=== PATIENT | male | born 1980 | race Caucasian/White ===

== ENCOUNTER 2020-03-21 13:14 | Emergency (ER) | payer SELFPAY ==
--- NOTE | 2020-03-26 12:30 | EKG ---
Test Reason : Blood Pressure : / mmHG Vent. Rate : 125 BPM Atrial Rate : 125 BPM P-R Int : 140 ms QRS Dur : 082 ms QT Int : 312 ms P-R-T Axes : 053 034 018 degrees QTc Int : 450 ms Sinus tachycardia Possible Left atrial enlargement Borderline ECG Confirmed by BOUBACAR CAICEDO DO ([id number]), editorial manager GRETEL JONES ([id number]) on 03/26/2020 12:29:35 PM Referred By: Confirmed By:BOUBACAR CAICEDO DO
== END 2020-03-21 14:30 | disposition home or self-care (01) ==
LOC: ERS 13:14
DX: F15.10 Other stimulant abuse, uncomplicated (principal); R00.0 Tachycardia, unspecified
CPT/HCPCS: 93005

== ENCOUNTER 2020-03-28 13:39 | Emergency (ER) | payer SELFPAY ==
[2020-03-28 14:28] LABS: #Basophils 0.1 thou/uL (0.0-0.2); #Eosinphils 0.1 thou/uL (0.0-0.7); #Lymphocytes 2.2 thou/uL (1.20-3.40); #Monocytes 1.2 thou/uL (0.11-0.59); #Neutrophils 7.8 thou/uL (1.40-6.50); %Eosinophils 1.2 % (0.0-10.0); %Lymphocytes 19.2 % (21.0-51.0); %Monocytes 10.2 % (0.0-10.0); %Neutrophils 68.5 % (42.0-75.0); Hemoglobin 17.4 g/dL (14.0-18.0); Mean Corpuscular HGB CONC 32.8 g/dL (32.0-36.0); Mean Corpuscular Hemoglobin 30.3 pg (27.0-31.0); Mean Corpuscular Volume 92.2 fL (78.0-98.0); Mean Platelet Volume 6.2 fL (7.4-10.4); Platelet Count 438 thou/uL (130-400); RBC Distribution Width 11.8 % (11.5-14.5); Red Blood Cell (RBC) Count 5.73 mill/uL (4.70-6.10); White Blood Cell (WBC) Count 11.4 thou/uL (4.8-10.8)
[2020-03-28 14:56] LABS: ALT (SGPT) 21 U/L (8-55); AST (SGOT) 15 U/L (5-34); Albumin 4.7 g/dL (3.5-5.0); Alcohol Less than 10 mg/dL (Less than 10); Alkaline Phosphatase 91 U/L (40-110); Anion Gap 13 mmol/L (10-20); BUN (Urea Nitrogen) 15 mg/dL (8.9-20.6); Bilirubin, Total 0.3 mg/dL (0.2-1.2); Calc. Creatinine Clearance 0 mL/min (70-130); Calcium 9.7 mg/dL (7.8-10.44); Carbon Dioxide 25 mmol/L (22-29); Chloride 105 mmol/L (98-107); Estimated GFR-MDRD 78; Globulin 3.3 g/dL (2.4-3.5); Glucose 97 mg/dL (70-105); Potassium 4.1 mmol/L (3.5-5.1); Sodium 139 mmol/L (136-145)
[2020-03-28 15:05] LABS: Acetaminophen Less than 6.0 mcg/mL (10.0-30.0); Alcohol Less than 10 mg/dL (Less than 10); CK (CPK) 184 U/L (30-200); Salicylate Less than 8.0 mg/dL (15.0-30.0)
[2020-03-28 15:27] LABS: Bilirubin Negative (Negative); Blood, Urine 1+ (Negative); Clarity Clear (Clear); Glucose, Urine (Dipstick) Normal (Negative); Leukocyte Negative Leu/uL (Negative); Nitrite Negative (Negative); Protein, Urine (Dipstick) 50 mg/dL (Neg-Trace); Squamous Epithelial 0-3 HPF (0-3); Urobilinogen Normal mg/dL (Less than 2)
[2020-03-28 15:37] LABS: Amphetamine Detected (NotDetected); Barbiturates Screen Not Detected (NotDetected); Benzodiazepine Screen Not Detected (NotDetected); Cocaine Metabolite Screen Not Detected (NotDetected); Medtox Control Line Valid? VALID (VALID); Medtox Reader # READER 4; Methadone Not Detected (NotDetected); Methamphetamine Detected (NotDetected); Opiate Screen Not Detected (NotDetected); Oxycodone Screen Not Detected (NotDetected); Phencyclidine (PCP) Not Detected (NotDetected); THC/Cannabinoid Screen Not Detected (NotDetected); Tricyclic Screen Not Detected (NotDetected)
[2020-03-28 15:45] LABS: Bacteria/HPF 1+ HPF (None Seen)
[2020-03-28] MEDS ORDERED: Lorazepam 1 MG TAB ONE (17:22)
[2020-03-28] MEDS ORDERED: diphenhydrAMINE 25 MG CAP ONE (18:24)
[2020-03-28] MEDS ORDERED: Haloperidol Lactate 5 MG/ML VIAL ONE (18:24)
--- NOTE | 2020-04-03 11:22 | EKG ---
Test Reason : Blood Pressure : / mmHG Vent. Rate : 111 BPM Atrial Rate : 111 BPM P-R Int : 142 ms QRS Dur : 080 ms QT Int : 322 ms P-R-T Axes : 046 028 026 degrees QTc Int : 437 ms Sinus tachycardia Cannot rule out Anterior infarct , age undetermined Abnormal ECG Confirmed by BOUBACAR CAICEDO DO ([id number]), video editor GRETEL JONES ([id number]) on 04/03/2020 11:21:42 AM Referred By: Confirmed By:BOUBACAR CAICEDO DO
== END 2020-03-28 21:38 ==
LOC: ERS 13:39
DX: F29 Unspecified psychosis not due to a substance or known physiological condition (principal); F15.10 Other stimulant abuse, uncomplicated; R45.851 Suicidal ideations
CPT/HCPCS: 36415; 80053; 80306; 80307; 81003; 81015; 82550; 84443; 85025; 93005; 94760; 96372; J1630; Q0163

== ENCOUNTER 2020-08-13 12:51 | Emergency (ER) | payer SELFPAY | END 2020-08-13 13:07 | disposition home or self-care (01) | LOC: ERS 12:51 | DX: L73.9 Follicular disorder, unspecified (principal) | CPT/HCPCS: 99282 ==

== ENCOUNTER 2020-08-14 05:49 | Inpatient (IN) | payer SELFPAY ==
[2020-08-14] MEDS ORDERED: Lorazepam 2 MG/ML VIAL ONE ×2 (05:54→07:21)
[2020-08-14] MEDS ORDERED: Acetaminophen 650 MG Suppository ONE (06:07)
[2020-08-14] MEDS ORDERED: Propofol 1,000 MG/100 ML VIAL IV ONE (06:27)
[2020-08-14 06:30] LABS: #Basophils 0.1 thou/uL (0.0-0.2); #Eosinphils 0.1 thou/uL (0.0-0.7); #Lymphocytes 2.5 thou/uL (1.20-3.40); #Monocytes 1.6 thou/uL (0.11-0.59); #Neutrophils 15.4 thou/uL (1.40-6.50); %Basophils 0.6 % (0.0-1.0); %Eosinophils 0.6 % (0.0-10.0); %Lymphocytes 12.7 % (21.0-51.0); %Monocytes 8.2 % (0.0-10.0); %Neutrophils 77.9 % (42.0-75.0); Hemoglobin 16.1 g/dL (14.0-18.0); Mean Corpuscular HGB CONC 33.1 g/dL (32.0-36.0); Mean Corpuscular Hemoglobin 30.9 pg (27.0-31.0); Mean Corpuscular Volume 93.3 fL (78.0-98.0); Mean Platelet Volume 7.8 fL (7.4-10.4); Platelet Count 485 thou/uL (130-400); RBC Distribution Width 12.1 % (11.5-14.5); Red Blood Cell (RBC) Count 5.22 mill/uL (4.70-6.10); White Blood Cell (WBC) Count 19.7 thou/uL (4.8-10.8)
[2020-08-14] MEDS ORDERED: Midazolam HCl 5 mg/ml Vial ONE (06:41)
[2020-08-14] MEDS ORDERED: Fentanyl 100 MCG/2 ML VIAL ONE (06:46)
[2020-08-14 06:49] LABS: Acetaminophen Less than 6.0 mcg/mL (10.0-30.0); Alcohol Less than 10 mg/dL (Less than 10); CK (CPK) 491 U/L (30-200); Salicylate Less than 8.0 mg/dL (15.0-30.0)
[2020-08-14 06:50] LABS: ALT (SGPT) 33 U/L (8-55); AST (SGOT) 27 U/L (5-34); Albumin 4.4 g/dL (3.5-5.0); Alkaline Phosphatase 90 U/L (40-110); Anion Gap 35 mmol/L (10-20); BUN (Urea Nitrogen) 27 mg/dL (8.9-20.6); Bilirubin, Total 0.3 mg/dL (0.2-1.2); Calc. Creatinine Clearance 0 mL/min (70-130); Calcium 9.3 mg/dL (7.8-10.44); Carbon Dioxide 10 mmol/L (22-29); Chloride 102 mmol/L (98-107); Estimated GFR-MDRD 27; Globulin 3.5 g/dL (2.4-3.5); Glucose 254 mg/dL (70-105); Potassium 3.7 mmol/L (3.5-5.1); Protein, Total 7.9 g/dL (6.0-8.3); Sodium 143 mmol/L (136-145)
[2020-08-14 06:54] LABS: Actual Bicarbonate (HCO3a) 15.9 mEq/L (22-28); Analyzer IN Cardio ER; Base Excess (BEa) -10.2 mEq/L (-2.0 to +3.0); CO2 Tension 36.1 mmHg (35.0-45.0); Calcium, Ionized (arterial) 1.19 mmol/L (1.12-1.30); Carboxyhemoglobin (COHb) 0.2 gm% (0.0-3.0); Hemoglobin (Hb) 14.8 g/dL (14.0-18.0); O2 Tension (PaO2), arterial 218.6 mmHg (80.0-100.0); Potassium - ABG Lab 3.45 mmol/L (3.70-5.30); pH, Arterial 7.26 (7.35-7.45)
[2020-08-14] MEDS ORDERED: fentaNYL Citrate/PF 2,000 MCG in Sodium Chloride 0.9% 60 ML IV SCH ×2 (07:00→11:15)
[2020-08-14 07:24] LABS: Bacteria/HPF None Seen HPF (None Seen); Bilirubin Negative (Negative); Blood, Urine 1+ (Negative); Clarity Clear (Clear); Glucose, Urine (Dipstick) 30 mg/dL (Negative); Ketone, Urine 10 mg/dL (Negative); Leukocyte Negative Leu/uL (Negative); Nitrite Negative (Negative); Protein, Urine (Dipstick) 100 mg/dL (Neg-Trace); Specific Gravity, Urine 1.027 (1.002-1.036); Squamous Epithelial None Seen HPF (0-3); Urobilinogen Normal mg/dL (Less than 2); pH, Urine 5.5 (5.0-9.0)
[2020-08-14 07:32] LABS: Amphetamine Detected (NotDetected); Barbiturates Screen Not Detected (NotDetected); Benzodiazepine Screen Not Detected (NotDetected); Cocaine Metabolite Screen Not Detected (NotDetected); Medtox Control Line Valid? VALID (VALID); Medtox Reader # READER 4; Methadone Not Detected (NotDetected); Methamphetamine Detected (NotDetected); Opiate Screen Not Detected (NotDetected); Oxycodone Screen Not Detected (NotDetected); Phencyclidine (PCP) Not Detected (NotDetected); THC/Cannabinoid Screen Not Detected (NotDetected); Tricyclic Screen Not Detected (NotDetected)
[2020-08-14] MEDS ORDERED: Piperacillin/Tazobactam 4.5 GM VIAL ONE (07:41)
[2020-08-14 07:46] LABS: Puncture Site RR
[2020-08-14 07:49] LABS: ALV-art Gradient 92.775 mmHg (0-20)
--- NOTE | 2020-08-14 08:15 | RAD ---
RADIOGRAPH CHEST 1 VIEW: DATE: 08/14/2020 TIME: 6:38 AM HISTORY: 40-year-old male status post intubation. COMPARISON: none FINDINGS: Endotracheal tuber distal tip approximately 5 cm superior to marcel. Esophagogastric tube coursing in to left upper quadrant of abdomen, distal tip outside of field of view. Low lung volumes. Nonspecific mild to moderate reticular densities at left medial base. Upper lung zones are clear of c onsolidations. No pneumothorax. IMPRESSION: 1) status post intubation with endotracheal tube and esophagogastric tube. 2) Limited evaluation of lungs because of hypoinflation. 3) reticular densities at left lower lung zone, nonspecific.
[2020-08-14] MEDS ORDERED: Ondansetron PF 4 MG/2 ML Vial IVP PRN (08:47)
[2020-08-14 08:59] LABS: Hemoglobin A1c 5.5 % (4.0-6.0)
[2020-08-14 09:00] LABS: SARS-CoV-2 NAA Rapid Test Not Detected (NotDetected)
[2020-08-14 09:18] VITALS: BMI 29.9
[2020-08-14] MEDS: Sodium Chloride 0.9% 1,000 ML IV SCH ×2 (09:29→15:03)
[2020-08-14] MEDS: Heparin 5,000 UNITS/ML VIAL SC SCH ×3 (09:57→20:16)
[2020-08-14] MEDS ORDERED: FLU VACC QS2020-21(6MOS UP)/PF 60 MCG/0.5 ML SYRINGE IM ONE (10:00)
[2020-08-14] MEDS ORDERED: DISCONTINUE PREVIOUS NARCOTIC PAIN MEDICATIONS AND BENZODIAZEPINES FS SCH (11:15)
[2020-08-14] MEDS ORDERED: Lorazepam 2 MG/ML VIAL SLOW IVP PRN (11:15)
[2020-08-14] MEDS ORDERED: Propofol BOLUS 1,000 MG/100 ML VIAL IV PRN (11:15)
[2020-08-14] MEDS ORDERED: Fentanyl BOLUS 250 ML IVPB PRN (11:15)
[2020-08-14] MEDS ORDERED: Morphine 2 MG/ML VIAL SLOW IVP PRN (11:15)
--- NOTE | 2020-08-14 11:18 | PDOC.HHP ---
Hospitalist HPI - History of Present Illness Altered mental status History of Present Illness: This is a 40-year-old male patient with an unknown psych history, who was brought in by the tool grinder set up operator gear on account of abnormal behavior. He is apparently unknown acid/meth user and was combative at the time he was picked up. He was brought in by police after he was found throwing bricks at an office. In route to the ED he was given sedatives including ketamine I have well. At presentation his blood pressure was 132/76, pulse 125, saturation 95% on room air and temperature 100.4. His labs showed a leukocytosis of 11.7, no bands, creatinine was elevated at 2.67 from a baseline of 1.06 on 03/28/2020. Anion gap was elevated at 31. Urine toxicology was positive for methamphetamine and amphetamine. Chest x-ray had nonspecific reticular densities at the left lower lung zone. Upon arrival he was persistently agitated with worsening altered mental status. Decision was made to sedate and intubate him. Post intubation, pH was 7.26, bicarb 36.1. Given his leukocytosis and mild baseline fevers he received some antibioticsZosyn on arrival. Hospitalist team was consulted for admission. Hospitalist ROS - Review of Systems ROS unobtainable: due to mental status - Medication Medications: Active Medications Generic Name Dose Route Start Last Admin Trade Name Lisa PRN Reason Stop Dose Admin Heparin Sodium (Porcine) 5,000 units 08/14/20 09:00 08/14/20 09:57 Heparin 5,000 Units/Ml Vial SC 5,000 units TID RIZWAN Administration Sodium Chloride 1,000 mls @ 100 mls/hr 08/14/20 09:00 08/14/20 09:29 Normal Saline 0.9% IV 1,000 mls .Q10H RIZWAN Administration Sodium Chloride 10 ml 08/14/20 09:00 08/14/20 09:30 Flush - Normal Saline 10 Ml Syringe IVF 10 ml Q12HR RIZWAN Administration - Exam General - other findings: In bed, on ventilator support Neck: symmetric, no JVD Heart: no murmur, no gallops Respiratory: no wheezes, no rales, no ronchi Gastrointestinal: soft, non-distended, normal bowel sounds Extremities: no cyanosis, no clubbing, no edema Hospitalist Results - Labs Result Diagrams: 08/14/20 05:54 08/14/20 05:54 Lab results: WBC 19.7 thou/uL (4.8-10.8) H 08/14/20 05:54 Hgb 16.1 g/dL (14.0-18.0) 08/14/20 05:54 Hct 48.7 % (42.0-52.0) 08/14/20 05:54 MCV 93.3 fL (78.0-98.0) 08/14/20 05:54 Plt Count 485 thou/uL (130-400) H 08/14/20 05:54 Neutrophils % 77.9 % (42.0-75.0) H 08/14/20 05:54 ABG pH 7.26 (7.35-7.45) L 08/14/20 06:50 ABG pCO2 36.1 mmHg (35.0-45.0) 08/14/20 06:50 ABG pO2 218.6 mmHg (80.0-100.0) H 08/14/20 06:50 Sodium 143 mmol/L (136-145) 08/14/20 05:54 Potassium 3.7 mmol/L (3.5-5.1) 08/14/20 05:54 Chloride 102 mmol/L (98-107) 08/14/20 05:54 Carbon Dioxide 10 mmol/L (22-29) L 08/14/20 05:54 BUN 27 mg/dL (8.9-20.6) H 08/14/20 05:54 Creatinine 2.67 mg/dL (0.7-1.3) H 08/14/20 05:54 Glucose 254 mg/dL (70-105) H 08/14/20 05:54 Lactic Acid 1.7 mmol/L (0.5-2.2) 08/14/20 07:50 Calcium 9.3 mg/dL (7.8-10.44) 08/14/20 05:54 Total Bilirubin 0.3 mg/dL (0.2-1.2) 08/14/20 05:54 AST 27 U/L (5-34) 08/14/20 05:54 ALT 33 U/L (8-55) 08/14/20 05:54 Alkaline Phosphatase 90 U/L (40-110) 08/14/20 05:54 Creatine Kinase 491 U/L (30-200) H 08/14/20 05:54 Serum Total Protein 7.9 g/dL (6.0-8.3) 08/14/20 05:54 Albumin 4.4 g/dL (3.5-5.0) 08/14/20 05:54 Urine Ketones 10 mg/dL (Negative) A 08/14/20 05:54 Urine Blood 1+ (Negative) A 08/14/20 05:54 Urine Nitrite Negative (Negative) 08/14/20 05:54 Ur Leukocyte Esterase Negative Katia/uL (Negative) 08/14/20 05:54 Urine RBC 4-6 HPF (0-3) A 08/14/20 05:54 Urine WBC 4-6 HPF (0-3) A 08/14/20 05:54 Ur Squamous Epith Cells None Seen HPF (0-3) 08/14/20 05:54 Urine Bacteria None Seen HPF (None Seen) 08/14/20 05:54 Hospitalist H&P A/P - Plan Plan: This is a 40-year-old male patient with a history of substance abuse brought in on account of altered mental status concerning for amphetamine intoxication. Acute encephalopathy Likely secondary to drug overdose We will continue monitoring on ventilator support Acute respiratory failure intubation for airway protection due to acute encephalopathy Pulmonology consulted. Amphetamine overdose. Vital signs currently stable Continue monitoring on ventilator and wean off Discussed with poison controlno further input Close monitoring. MAJOR Multifactorialintoxication, dehydration and elevated blood pressures Received 2 L normal saline in ER Continue home 100 mils per hour IV fluids Monitor BMP Elevated creatinine kinase
[2020-08-14 11:21] LABS: Actual Bicarbonate (HCO3a) 18.2 mEq/L (22-28); Base Excess (BEa) -6.3 mEq/L (-2.0 to +3.0); CO2 Tension 33.4 mmHg (35.0-45.0); Calcium, Ionized (arterial) 1.13 mmol/L (1.12-1.30); Carboxyhemoglobin (COHb) 0.1 gm% (0.0-3.0); Hemoglobin (Hb) 13.8 g/dL (14.0-18.0); O2 Tension (PaO2), arterial 134.1 mmHg (80.0-100.0); Potassium - ABG Lab 3.43 mmol/L (3.70-5.30); pH, Arterial 7.36 (7.35-7.45)
[2020-08-14 11:24] LABS: Puncture Site RBRACH
[2020-08-14] MEDS: Vecuronium 10 MG VIAL IV PRN ×2 (13:18→17:50)
[2020-08-14] MEDS: Propofol 1,000 MG/100 ML VIAL IV PRN (18:39)
--- NOTE | 2020-08-15 00:46 | CON ---
DATE OF CONSULTATION: 08/14/2020 HISTORY OF PRESENT ILLNESS: Mr. Coleman is a 40-year-old male. Apparently, police were called after he was throwing bricks at a building. Police and cheese cutter gave him ketamine and he was transported at some point in time, intubated. I was consulted because of his presence to Critical Care Unit. PAST MEDICAL HISTORY: Remarkable for an ER visit in March with psychosis both on the for police related medical clearance and on the . He has no other known past medical history. FAMILY HISTORY: Unknown. SOCIAL HISTORY: Unknown. PHYSICAL EXAMINATION: GENERAL: He is sedated. VITAL SIGNS: Blood pressure 103/70, heart rate is 80, respiratory rate 16, FiO2 is at 40%. HEAD AND NECK: Unremarkable. He does have some bruises on his face. His neck is without lymphadenopathy. LUNGS: Clear. HEART: Regular rhythm. ABDOMEN: Soft. EXTREMITIES: Without asymmetry. LABORATORY DATA: White count 19.7, hemoglobin 16.1, platelets 45. Sodium 143, potassium 3.7, chloride 102, bicarb 10, BUN 27, creatinine 2.67, glucose 254, creatine kinase 491, pH 736, CO2 of 33, PO2 of 134. Drug screen is positive for meth. IMPRESSION: 1. Psychosis associated with methamphetamine use. 2. Intravascular volume depletion. 3. Acute renal insufficiency secondary to intravascular volume depletion. 4. Rhabdomyolysis secondary to meth use and probably struggling with police officers. His drug screen was positive for meth back in March as well. It is very hard to separate out what is schizophrenia and meth use, but I suspect the majority of his behavior is entirely related to methamphetamine use. He will be mechanically ventilated for 24 to 48 hours until we are sure the meth is cleared out of his system, and then will be extubated and if necessary we will release to police custody. I suspect if he stays in town, he will be a frequent flyer since this is 3 visits in 5 months to our hospital. Critical care time 35 min. Job ID: [id number] [facility] SERVICESAnnie
[2020-08-15] MEDS: Sodium Chloride 0.9% 1,000 ML IV SCH ×3 (01:10→14:18)
[2020-08-15] MEDS ORDERED: Sterile Water 10 ML ONE (02:50)
[2020-08-15] MEDS: Vecuronium 10 MG VIAL IV PRN (02:58)
[2020-08-15] MEDS: Propofol 1,000 MG/100 ML VIAL IV PRN ×2 (02:58→08:14)
[2020-08-15 03:41] LABS: Anion Gap 14 mmol/L (10-20); BUN (Urea Nitrogen) 28 mg/dL (8.9-20.6); Calc. Creatinine Clearance 64 mL/min (70-130); Calcium 8.1 mg/dL (7.8-10.44); Carbon Dioxide 20 mmol/L (22-29); Chloride 117 mmol/L (98-107); Estimated GFR-MDRD 36; Glucose 65 mg/dL (70-105); Potassium 4.1 mmol/L (3.5-5.1); Sodium 147 mmol/L (136-145)
[2020-08-15 06:04] LABS: Band 11 % (5-11); Eosinophils 3 % (0-10); Hemoglobin 13.7 g/dL (14.0-18.0); Lymphocytes 25 % (21-51); MDiff Complete? YES; Mean Corpuscular HGB CONC 32.1 g/dL (32.0-36.0); Mean Corpuscular Hemoglobin 30.5 pg (27.0-31.0); Mean Platelet Volume 6.7 fL (7.4-10.4); Monocytes 12 % (0-10); Neutrophil 49 % (42-75); Platelet Count 283 thou/uL (130-400); RBC Distribution Width 12.3 % (11.5-14.5); White Blood Cell (WBC) Count 12.5 thou/uL (4.8-10.8)
[2020-08-15] MEDS ORDERED: Haloperidol Lactate 5 MG/ML VIAL ONE (08:08)
[2020-08-15] MEDS: Heparin 5,000 UNITS/ML VIAL SC SCH ×3 (08:14→20:19)
[2020-08-15] MEDS ORDERED: Haloperidol Lactate 5 MG/ML VIAL IM SCH (08:15)
--- NOTE | 2020-08-15 08:30 | PDOC.HOSPP ---
- Subjective Encounter Date: 08/15/20 Encounter Time: 08:29 Subjective: intubated, sedated - Objective Vital Signs & Weight: Vital Signs (12 hours) Temp Pulse Resp BP Pulse Ox 08/15/20 07:23 67 106/65 08/15/20 07:07 100 08/15/20 06:00 16 08/15/20 05:00 98.4 F 08/15/20 04:00 16 08/15/20 02:17 69 08/15/20 02:00 16 08/15/20 01:00 98.0 F 08/15/20 00:00 16 08/14/20 22:07 79 08/14/20 22:00 16 Weight Weight 208 lb 12.444 oz Most Recent Monitor Data Heart Rate from ECG 67 NIBP 106/65 NIBP BP-Mean 78 Respiration from ECG 16 SpO2 100 I&O: 08/14/20 08/15/20 08/16/20 06:59 06:59 06:59 Intake Total 1644.3 Output Total 2345 150 Balance -700.7 -150 Result Diagrams: 08/15/20 04:08 08/15/20 03:08 Radiology Reviewed by me: Yes (CXR- ET tube, clear lung ross) Hospitalist ROS - Medication Medications: Active Medications Generic Name Dose Route Start Last Admin Trade Name Freq PRN Reason Stop Dose Admin Haloperidol Lactate 10 mg 08/15/20 08:15 08/15/20 08:15 Haloperidol Lactate 5 Mg/Ml Vial IM 08/15/20 10:00 10 mg NOW RIZWAN Administration Heparin Sodium (Porcine) 5,000 units 08/14/20 09:00 08/15/20 08:14 Heparin 5,000 Units/Ml Vial SC 5,000 units TID RIZWAN Administration Sodium Chloride 1,000 mls @ 100 mls/hr 08/14/20 09:00 08/15/20 04:29 Normal Saline 0.9% IV Not Given .Q10H RIZWAN Fentanyl Citrate 2,000 mcg/ 100 mls @ 0 mls/hr 08/14/20 11:15 08/14/20 17:50 Sodium Chloride IV 09/13/20 11:15 100 mls INF RIZWAN Administration Protocol Per Protocol Propofol 1,000 mg 08/14/20 11:15 08/15/20 08:14 Propofol 1,000 Mg/100 Ml Vial IV 09/13/20 11:15 1,000 mg INF PRN Administration TO ACHIEVE GOAL RASS Protocol Sodium Chloride 10 ml 08/14/20 09:00 08/15/20 08:14 Flush - Normal Saline 10 Ml Syringe IVF 10 ml Q12HR RIZWAN Administration Vecuronium [place] 10 mg 08/14/20 11:13 08/15/20 02:58 Vecuronium 10 Mg Vial IV 10 mg Q1H PRN Administration MOVEMENT - Exam ENT - other findings: ET tube Neck - other findings: NGT aspirate bloody Heart: RRR, no murmur Respiratory: CTAB Gastrointestinal: soft, non-tender, normal bowel sounds Extremities: no edema Hosp A/P (1) Acute psychosis Code(s): F23 - BRIEF PSYCHOTIC DISORDER Status: Acute (2) Methamphetamine addiction Code(s): F15.20 - OTHER STIMULANT DEPENDENCE, UNCOMPLICATED Status: Acute (3) Rhabdomyolysis Code(s): M62.82 - RHABDOMYOLYSIS Status: Acute Qualifiers: Rhabdomyolysis type: non-traumatic Qualified Code(s): M62.82 - Rhabdomyolysis (4) Acute renal failure Status: Acute Qualifiers: Acute renal failure type: unspecified Qualified Code(s): N17.9 - Acute kidney failure, unspecified (5) Acute respiratory failure with hypoxemia Code(s): J96.01 - ACUTE RESPIRATORY FAILURE WITH HYPOXIA Status: Acute - Plan on ventilator cont iv fluids monitor renal fcn add iv PPI
[2020-08-15] MEDS: Pantoprazole 40 MG VIAL IVP SCH (09:28)
--- NOTE | 2020-08-15 17:24 | PRG ---
DATE OF SERVICE: 08/15/2020 SUBJECTIVE: Levi Coleman is awake and actually surprisingly cooperative this morning. He met criteria for extubation. OBJECTIVE: VITAL SIGNS: He is afebrile. Vital signs are stable. LUNGS: Clear. HEART: Regular rhythm. ABDOMEN: Soft. EXTREMITIES: Without edema. LABORATORY DATA: White count 12.5, hemoglobin 13.7, platelets 283. Sodium 147, potassium 4.1, chloride 117, bicarb 20, BUN 20, creatinine 2.05. He was given 10 mg IV Haldol prior to extubation. IMPRESSION: 1. Methamphetamine-induced behavior leading to sedation and intubation. He has been extubated. 2. Anzaj-rs-yxneoqg kidney disease, it is improving. 3. Diabetes. 4. Hyperchloremia secondary to volume resuscitation. 5. He is stable to move out of Critical Care Unit. The police were called. The police should be contacted as the police holding on for his discharge. Rhabdomyolysis, I am sure, has improved. We will sign off on transfer. CRITICAL CARE TIME: 30 minutes. Job ID: [id number]
[2020-08-16] MEDS: Sodium Chloride 0.9% 1,000 ML IV SCH ×3 (01:29→20:38)
[2020-08-16] MEDS: Pantoprazole 40 MG VIAL IVP SCH (08:14)
[2020-08-16] MEDS: Heparin 5,000 UNITS/ML VIAL SC SCH ×3 (08:14→20:33)
--- NOTE | 2020-08-16 08:37 | PDOC.HOSPP ---
- Subjective Encounter Date: 08/16/20 Encounter Time: 08:35 Subjective: alert, oriented x 3, flat affect - Objective Vital Signs & Weight: Vital Signs (12 hours) Temp Pulse Resp BP BP Pulse Ox 08/16/20 07:20 98.9 F 93 18 131/83 95 08/16/20 04:00 97.8 F 113 H 20 141/93 H 121/81 92 L 08/15/20 23:49 98.6 F 84 20 131/83 91 L Weight Weight 208 lb 12.444 oz Most Recent Monitor Data Heart Rate from ECG 92 NIBP 124/76 NIBP BP-Mean 92 Respiration from ECG 17 SpO2 91 I&O: 08/15/20 08/16/20 08/17/20 06:59 06:59 06:59 Intake Total 1644.3 852 Output Total 2345 1825 Balance -700.7 -973 Result Diagrams: 08/15/20 04:08 08/15/20 03:08 Hospitalist ROS - Medication Medications: Active Medications Generic Name Dose Route Start Last Admin Trade Name Freq PRN Reason Stop Dose Admin Heparin Sodium (Porcine) 5,000 units 08/14/20 09:00 08/16/20 08:14 Heparin 5,000 Units/Ml Vial SC 5,000 units TID RZIWAN Administration Sodium Chloride 1,000 mls @ 100 mls/hr 08/14/20 09:00 08/16/20 01:29 Normal Saline 0.9% IV Not Given .Q10H RIZWAN Propofol 1,000 mg 08/14/20 11:15 08/15/20 08:14 Propofol 1,000 Mg/100 Ml Vial IV 09/13/20 11:15 1,000 mg INF PRN Administration TO ACHIEVE GOAL RASS Protocol Sodium Chloride 10 ml 08/14/20 09:00 08/16/20 08:14 Flush - Normal Saline 10 Ml Syringe IVF 10 ml Q12HR RIZWAN Administration - Exam General Appearance: awake alert Neck: no JVD Heart: RRR, no murmur Respiratory: CTAB Gastrointestinal: soft, normal bowel sounds Extremities: no edema Hosp A/P (1) Acute psychosis Code(s): F23 - BRIEF PSYCHOTIC DISORDER Status: Resolved (2) Methamphetamine addiction Code(s): F15.20 - OTHER STIMULANT DEPENDENCE, UNCOMPLICATED Status: Acute (3) Rhabdomyolysis Code(s): M62.82 - RHABDOMYOLYSIS Status: Acute Qualifiers: Rhabdomyolysis type: non-traumatic Qualified Code(s): M62.82 - Rhabdomyolysis (4) Acute renal failure Status: Acute Qualifiers: Acute renal failure type: unspecified Qualified Code(s): N17.9 - Acute kidney failure, unspecified (5) Acute respiratory failure with hypoxemia Code(s): J96.01 - ACUTE RESPIRATORY FAILURE WITH HYPOXIA Status: Resolved - Plan much improved discussed methamphtemine use cont iv fluids. CK, BMP pending
[2020-08-16 11:18] LABS: Anion Gap 12 mmol/L (10-20); BUN (Urea Nitrogen) 17 mg/dL (8.9-20.6); CK (CPK) 1831 U/L (30-200); Calc. Creatinine Clearance 98 mL/min (70-130); Calcium 8.7 mg/dL (7.8-10.44); Carbon Dioxide 26 mmol/L (22-29); Chloride 111 mmol/L (98-107); Estimated GFR-MDRD 59; Glucose 106 mg/dL (70-105); Potassium 4.3 mmol/L (3.5-5.1); Sodium 145 mmol/L (136-145)
--- NOTE | 2020-08-16 14:54 | PDOC.HOSPP ---
- Subjective Encounter Date: 08/16/20 Encounter Time: 14:53 Subjective: CK about 1800, creat improved. cont current TX - Objective Vital Signs & Weight: Vital Signs (12 hours) Temp Pulse Resp BP BP Pulse Ox 08/16/20 08:15 95 08/16/20 07:20 98.9 F 93 18 131/83 95 08/16/20 04:00 97.8 F 113 H 20 141/93 H 121/81 92 L Weight Weight 208 lb 12.444 oz Most Recent Monitor Data Heart Rate from ECG 92 NIBP 124/76 NIBP BP-Mean 92 Respiration from ECG 17 SpO2 91 I&O: 08/15/20 08/16/20 08/17/20 06:59 06:59 06:59 Intake Total 1644.3 852 Output Total 2345 1825 Balance -700.7 -973 Result Diagrams: 08/15/20 04:08 08/16/20 10:29 Hospitalist ROS - Medication Medications: Active Medications Generic Name Dose Route Start Last Admin Trade Name Freq PRN Reason Stop Dose Admin Heparin Sodium (Porcine) 5,000 units 08/14/20 09:00 08/16/20 08:14 Heparin 5,000 Units/Ml Vial SC 5,000 units TID RIZWAN Administration Sodium Chloride 1,000 mls @ 100 mls/hr 08/14/20 09:00 08/16/20 11:45 Normal Saline 0.9% IV Not Given .Q10H RIZWAN Propofol 1,000 mg 08/14/20 11:15 08/15/20 08:14 Propofol 1,000 Mg/100 Ml Vial IV 09/13/20 11:15 1,000 mg INF PRN Administration TO ACHIEVE GOAL RASS Protocol Sodium Chloride 10 ml 08/14/20 09:00 08/16/20 08:14 Flush - Normal Saline 10 Ml Syringe IVF 10 ml Q12HR RIZWAN Administration Hosp A/P (1) Acute psychosis Code(s): F23 - BRIEF PSYCHOTIC DISORDER Status: Resolved (2) Methamphetamine addiction Code(s): F15.20 - OTHER STIMULANT DEPENDENCE, UNCOMPLICATED Status: Acute (3) Rhabdomyolysis Code(s): M62.82 - RHABDOMYOLYSIS Status: Acute Qualifiers: Rhabdomyolysis type: non-traumatic Qualified Code(s): M62.82 - Rhabdomyolysis (4) Acute renal failure Status: Acute Qualifiers: Acute renal failure type: unspecified Qualified Code(s): N17.9 - Acute kidney failure, unspecified (5) Acute respiratory failure with hypoxemia Code(s): J96.01 - ACUTE RESPIRATORY FAILURE WITH HYPOXIA Status: Resolved - Plan much improved discussed methamphtemine use cont iv fluids. CK, BMP pending
[2020-08-17 07:08] VITALS: BP 158/87; TEMP 97.8
[2020-08-17] MEDS: Sodium Chloride 0.9% 1,000 ML IV SCH (07:21)
[2020-08-17] MEDS: Heparin 5,000 UNITS/ML VIAL SC SCH (08:01)
[2020-08-17 09:40] LABS: Anion Gap 17 mmol/L (10-20); BUN (Urea Nitrogen) 12 mg/dL (8.9-20.6); Calc. Creatinine Clearance 151 mL/min (70-130); Calcium 8.9 mg/dL (7.8-10.44); Carbon Dioxide 22 mmol/L (22-29); Chloride 105 mmol/L (98-107); Estimated GFR-MDRD Greater than 90; Glucose 81 mg/dL (70-105); Potassium 3.4 mmol/L (3.5-5.1); Sodium 141 mmol/L (136-145)
--- NOTE | 2020-08-17 11:28 | DIS ---
DATE OF ADMISSION: 08/14/2020 DATE OF DISCHARGE: 08/17/2020 PRIMARY CARE PHYSICIAN: None. DISPOSITION: Discharged home. FINAL DIAGNOSES: Encephalopathy, acute, resolved; acute respiratory failure with hypoxia; methamphetamine abuse; acute renal failure, resolved. DISCHARGE MEDICATIONS: None. CODE STATUS: Full. DIET: As tolerated. PENDING AT TIME OF DISCHARGE: Nothing. HOSPITAL COURSE: The patient admitted through [facility] to the Hospitalist Service. He presented with encephalopathy. He was intubated because of agitated and combative behavior. Initial laboratory; white count 19.7, hemoglobin 16.1, platelet count 485,000. Blood sugar 254, creatinine 2.67, BUN 27, CO2 of 10. Initial blood gas revealed a pH of 7.26 and pCO2 of 36. He was seen in consultation by Dr. Norman Briscoe. Diagnoses at that time were acute encephalopathy, acute renal failure, rhabdomyolysis, and mechanically intubated with an acidosis. On day #1 post admission, he was awake and cooperative. His criteria for extubation was extubated. Pertinent laboratory during his hospital stay otherwise, white cell count 19.7 on admission, followup of 12.5; hemoglobin 16.1 on admission, followup 13.7. His initial creatinine was 2.67, which dropped to 2.05 by day #2 and dropped to 0.87 today. On admission, he had a marked acidosis with a CO2 of 10, which improved dramatically and is now 22 all nights His toxicologyreport revealed methamphetamines. COVID was negative. He is awake and alert. He is cooperative. I have discussed in length the risk of methamphetamine abuse with him. His cardiorespiratory exam is normal. He is being discharged. He has been told he needs a PCP for followup. Job ID: [id number] [facility]
--- NOTE | 2020-08-27 16:15 | EKG ---
Test Reason : Blood Pressure : / mmHG Vent. Rate : 149 BPM Atrial Rate : 149 BPM P-R Int : 130 ms QRS Dur : 080 ms QT Int : 266 ms P-R-T Axes : 066 067 053 degrees QTc Int : 418 ms Sinus tachycardia Cannot rule out Anterior infarct , age undetermined Abnormal ECG Confirmed by SYLVAIN GORDON M.D. ([id number]), deputy editor in chief GRETEL JONES ([id number]) on 08/27/2020 4:15:36 PM Referred By: Confirmed By:SYLVAIN GORDON M.D.
== END 2020-08-17 11:51 | disposition home or self-care (01) | DRG 917 ==
LOC: ERS 05:49 → CCU 07:45 → T4-A 08-15 15:58
PROVIDERS: ADMIT Student in an Organized Health Care Education/Training Program; ATTEND Internal Medicine
PROC: 0BH17EZ Insertion of Endotracheal Airway into Trachea, Via Natural or Artificial Opening (ICD-10-PCS; principal; 2020-08-14)
PROC: 5A1945Z Respiratory Ventilation, 24-96 Consecutive Hours (ICD-10-PCS; 2020-08-14)
DX: T43.621A Poisoning by amphetamines, accidental (unintentional), initial encounter (principal); J96.01 Acute respiratory failure with hypoxia; G92 Toxic encephalopathy; N17.9 Acute kidney failure, unspecified; M62.82 Rhabdomyolysis; F23 Brief psychotic disorder; E03.9 Hypothyroidism, unspecified; F32.9 Major depressive disorder, single episode, unspecified; F15.129 Other stimulant abuse with intoxication, unspecified; E86.9 Volume depletion, unspecified; E87.8 Other disorders of electrolyte and fluid balance, not elsewhere classified; Z20.828 Contact with and (suspected) exposure to other viral communicable diseases
CPT/HCPCS: 31500; 36415; 51702; 71045; 80048; 80053; 80306; 80307; 81003; 81015; 82550; 82805; 83036; 83605; 84443; 85025; 87040; 93005; 94002; 94003; 96365; 96367; 96375; 96376; C9113; J1630; J1644; J2060; J2250; J2543; J2704; J3010; J3490; U0002

== ENCOUNTER 2020-10-08 15:49 | Emergency (ER) | payer SELFPAY ==
[2020-10-08 16:43] LABS: #Basophils 0.1 thou/uL (0.0-0.2); #Eosinphils 0.1 thou/uL (0.0-0.7); #Lymphocytes 2.6 thou/uL (1.20-3.40); #Monocytes 1.4 thou/uL (0.11-0.59); #Neutrophils 9.1 thou/uL (1.40-6.50); %Basophils 0.7 % (0.0-1.0); %Eosinophils 0.9 % (0.0-10.0); %Lymphocytes 19.6 % (21.0-51.0); %Monocytes 10.4 % (0.0-10.0); %Neutrophils 68.3 % (42.0-75.0); Hemoglobin 16.6 g/dL (14.0-18.0); Mean Corpuscular HGB CONC 33.7 g/dL (32.0-36.0); Mean Corpuscular Hemoglobin 30.6 pg (27.0-31.0); Mean Corpuscular Volume 90.8 fL (78.0-98.0); Mean Platelet Volume 6.4 fL (7.4-10.4); Platelet Count 447 thou/uL (130-400); RBC Distribution Width 12.1 % (11.5-14.5); Red Blood Cell (RBC) Count 5.43 mill/uL (4.70-6.10); White Blood Cell (WBC) Count 13.3 thou/uL (4.8-10.8)
[2020-10-08 16:49] LABS: Bacteria/HPF None Seen HPF (None Seen); Bilirubin Negative (Negative); Blood, Urine 1+ (Negative); Clarity Clear (Clear); Glucose, Urine (Dipstick) Normal (Negative); Ketone, Urine 20 mg/dL (Negative); Leukocyte Negative Leu/uL (Negative); Nitrite Negative (Negative); Protein, Urine (Dipstick) 30 mg/dL (Neg-Trace); RBC/HPF 21-50 HPF (0-3); Specific Gravity, Urine 1.027 (1.002-1.036); Squamous Epithelial 0-3 HPF (0-3); Urobilinogen Normal mg/dL (Less than 2); WBC/HPF 0-3 HPF (0-3)
[2020-10-08 16:55] LABS: Amphetamine Detected (NotDetected); Barbiturates Screen Not Detected (NotDetected); Benzodiazepine Screen Not Detected (NotDetected); Cocaine Metabolite Screen Not Detected (NotDetected); Medtox Control Line Valid? VALID (VALID); Medtox Reader # READER 1; Methadone Not Detected (NotDetected); Methamphetamine Detected (NotDetected); Opiate Screen Not Detected (NotDetected); Oxycodone Screen Not Detected (NotDetected); Phencyclidine (PCP) Not Detected (NotDetected); THC/Cannabinoid Screen Not Detected (NotDetected); Tricyclic Screen Not Detected (NotDetected)
[2020-10-08 17:05] LABS: Acetaminophen Less than 6.0 mcg/mL (10.0-30.0); Alcohol Less than 10 mg/dL (Less than 10); Salicylate Less than 8.0 mg/dL (15.0-30.0)
[2020-10-08 17:06] LABS: ALT (SGPT) 24 U/L (8-55); AST (SGOT) 15 U/L (5-34); Albumin 4.4 g/dL (3.5-5.0); Alcohol Less than 10 mg/dL (Less than 10); Alkaline Phosphatase 84 U/L (40-110); Anion Gap 16 mmol/L (10-20); BUN (Urea Nitrogen) 12 mg/dL (8.9-20.6); Bilirubin, Total 0.3 mg/dL (0.2-1.2); CK (CPK) 149 U/L (30-200); Calc. Creatinine Clearance 0 mL/min (70-130); Calcium 9.3 mg/dL (7.8-10.44); Carbon Dioxide 22 mmol/L (22-29); Chloride 104 mmol/L (98-107); Globulin 3.5 g/dL (2.4-3.5); Glucose 117 mg/dL (70-105); Potassium 3.4 mmol/L (3.5-5.1); Protein, Total 7.9 g/dL (6.0-8.3); Sodium 139 mmol/L (136-145)
[2020-10-08] MEDS ORDERED: Lorazepam 2 MG/ML VIAL ONE (19:46)
[2020-10-09] MEDS ORDERED: hydrOXYzine Pamoate 25 mg Capsule ONE (07:51)
== END 2020-10-08 19:19 | disposition home or self-care (01) ==
LOC: ERS 15:49
DX: F19.10 Other psychoactive substance abuse, uncomplicated (principal)
CPT/HCPCS: 36415; 80053; 80306; 80307; 81003; 81015; 82550; 84443; 85025; 93005; 94760; 96372; J2060; Q0177

== ENCOUNTER 2020-10-27 02:48 | Emergency (ER) | payer SELFPAY ==
[2020-10-27 03:41] LABS: Bacteria/HPF None Seen HPF (None Seen); Bilirubin Negative (Negative); Blood, Urine 2+ (Negative); Calcium Oxalate Crystals 3+ HPF (None Seen); Clarity Turbid (Clear); Glucose, Urine (Dipstick) Normal (Negative); Ketone, Urine Negative (Negative); Leukocyte Negative Leu/uL (Negative); Nitrite Negative (Negative); Protein, Urine (Dipstick) 20 mg/dL (Neg-Trace); Specific Gravity, Urine 1.027 (1.002-1.036); Squamous Epithelial 0-3 HPF (0-3); Urobilinogen Normal mg/dL (Less than 2); pH, Urine 5.5 (5.0-9.0)
[2020-10-27 03:43] LABS: Amphetamine Detected (NotDetected); Barbiturates Screen Not Detected (NotDetected); Benzodiazepine Screen Not Detected (NotDetected); Cocaine Metabolite Screen Not Detected (NotDetected); Medtox Control Line Valid? VALID (VALID); Medtox Reader # READER 4; Methadone Not Detected (NotDetected); Methamphetamine Detected (NotDetected); Opiate Screen Not Detected (NotDetected); Oxycodone Screen Not Detected (NotDetected); Phencyclidine (PCP) Not Detected (NotDetected); THC/Cannabinoid Screen Not Detected (NotDetected); Tricyclic Screen Not Detected (NotDetected)
[2020-10-27 03:47] LABS: Acetaminophen Less than 6.0 mcg/mL (10.0-30.0); Alcohol Less than 10 mg/dL (Less than 10); CK (CPK) 60 U/L (30-200); Salicylate Less than 8.0 mg/dL (15.0-30.0)
[2020-10-27 03:50] LABS: Band 7 % (5-11); Hemoglobin 17.1 g/dL (14.0-18.0); Lymphocytes 11 % (21-51); MDiff Complete? YES; Mean Corpuscular HGB CONC 32.8 g/dL (32.0-36.0); Mean Corpuscular Hemoglobin 29.9 pg (27.0-31.0); Mean Platelet Volume 6.4 fL (7.4-10.4); Monocytes 5 % (0-10); Neutrophil 77 % (42-75); Platelet Count 474 thou/uL (130-400); RBC Distribution Width 12.4 % (11.5-14.5); Red Blood Cell (RBC) Count 5.73 mill/uL (4.70-6.10); White Blood Cell (WBC) Count 21.6 thou/uL (4.8-10.8)
[2020-10-27 03:52] LABS: ALT (SGPT) 29 U/L (8-55); AST (SGOT) 16 U/L (5-34); Albumin 4.7 g/dL (3.5-5.0); Alkaline Phosphatase 92 U/L (40-110); Anion Gap 18 mmol/L (10-20); BUN (Urea Nitrogen) 14 mg/dL (8.9-20.6); Bilirubin, Total 0.2 mg/dL (0.2-1.2); Calc. Creatinine Clearance 0 mL/min (70-130); Calcium 9.4 mg/dL (7.8-10.44); Carbon Dioxide 21 mmol/L (22-29); Chloride 103 mmol/L (98-107); Globulin 3.6 g/dL (2.4-3.5); Glucose 130 mg/dL (70-105); Potassium 3.9 mmol/L (3.5-5.1); Protein, Total 8.3 g/dL (6.0-8.3); Sodium 138 mmol/L (136-145)
[2020-10-27] MEDS ORDERED: Lorazepam 2 MG/ML VIAL ONE (04:37)
[2020-10-27 06:03] LABS: #Basophils 0.1 thou/uL (0.0-0.2); #Eosinphils 0.1 thou/uL (0.0-0.7); #Lymphocytes 2.2 thou/uL (1.20-3.40); #Monocytes 1.3 thou/uL (0.11-0.59); #Neutrophils 15.3 thou/uL (1.40-6.50); %Basophils 0.4 % (0.0-1.0); %Eosinophils 0.3 % (0.0-10.0); %Lymphocytes 11.7 % (21.0-51.0); %Monocytes 6.9 % (0.0-10.0); %Neutrophils 80.7 % (42.0-75.0); Hemoglobin 15.8 g/dL (14.0-18.0); Mean Corpuscular HGB CONC 33.4 g/dL (32.0-36.0); Mean Corpuscular Hemoglobin 30.7 pg (27.0-31.0); Mean Platelet Volume 6.4 fL (7.4-10.4); Platelet Count 403 thou/uL (130-400); RBC Distribution Width 12.1 % (11.5-14.5); Red Blood Cell (RBC) Count 5.15 mill/uL (4.70-6.10); White Blood Cell (WBC) Count 18.9 thou/uL (4.8-10.8)
[2020-10-27] MEDS ORDERED: Diazepam 5 MG TAB ONE (06:12)
[2020-10-27 08:34] LABS: SARS-CoV-2 NAA Rapid Test Not Detected (NotDetected)
[2020-10-27] MEDS ORDERED: Lorazepam 1 MG TAB ONE (09:07)
[2020-10-27 10:49] LABS: #Eosinphils 0.1 thou/uL (0.0-0.7); #Monocytes 1.7 thou/uL (0.11-0.59); #Neutrophils 12.1 thou/uL (1.40-6.50); %Basophils 0.2 % (0.0-1.0); %Eosinophils 0.5 % (0.0-10.0); %Lymphocytes 17.8 % (21.0-51.0); %Monocytes 10.1 % (0.0-10.0); %Neutrophils 71.5 % (42.0-75.0); Hemoglobin 15.4 g/dL (14.0-18.0); Mean Corpuscular HGB CONC 33.1 g/dL (32.0-36.0); Mean Corpuscular Hemoglobin 30.4 pg (27.0-31.0); Mean Corpuscular Volume 91.9 fL (78.0-98.0); Mean Platelet Volume 6.6 fL (7.4-10.4); Platelet Count 414 thou/uL (130-400); RBC Distribution Width 12.2 % (11.5-14.5); Red Blood Cell (RBC) Count 5.08 mill/uL (4.70-6.10); White Blood Cell (WBC) Count 16.9 thou/uL (4.8-10.8)
[2020-10-27] MEDS ORDERED: Nicotine 14 MG PATCH ONE (13:55)
== END 2020-10-27 16:43 ==
LOC: ERS 02:48
DX: R45.851 Suicidal ideations (principal); R44.0 Auditory hallucinations; Z20.822 Contact with and (suspected) exposure to COVID-19; F17.210 Nicotine dependence, cigarettes, uncomplicated
CPT/HCPCS: 0240U; 36415; 80053; 80306; 80307; 81003; 81015; 82550; 84443; 85025; 96374; J2060

== ENCOUNTER 2021-01-27 22:37 | Emergency (ER) | payer SELFPAY ==
[2021-01-27] MEDS ORDERED: Lorazepam 2 MG/ML VIAL ONE (23:27)
[2021-01-27 23:36] LABS: #Basophils 0.1 thou/uL (0.0-0.2); #Lymphocytes 1.6 thou/uL (1.20-3.40); #Monocytes 1.4 thou/uL (0.11-0.59); #Neutrophils 14.8 thou/uL (1.40-6.50); %Basophils 0.4 % (0.0-1.0); %Eosinophils 0.2 % (0.0-10.0); %Lymphocytes 9.1 % (21.0-51.0); %Monocytes 7.8 % (0.0-10.0); %Neutrophils 82.5 % (42.0-75.0); Hemoglobin 16.3 g/dL (14.0-18.0); Mean Corpuscular HGB CONC 33.5 g/dL (32.0-36.0); Mean Corpuscular Volume 92.6 fL (78.0-98.0); Mean Platelet Volume 6.8 fL (7.4-10.4); Platelet Count 440 thou/uL (130-400); RBC Distribution Width 12.4 % (11.5-14.5); Red Blood Cell (RBC) Count 5.25 mill/uL (4.70-6.10)
[2021-01-28 01:02] LABS: Amphetamine Detected (NotDetected); Barbiturates Screen Not Detected (NotDetected); Benzodiazepine Screen Not Detected (NotDetected); Cocaine Metabolite Screen Not Detected (NotDetected); Medtox Control Line Valid? VALID (VALID); Medtox Reader # READER 4; Methadone Not Detected (NotDetected); Methamphetamine Detected (NotDetected); Opiate Screen Not Detected (NotDetected); Oxycodone Screen Not Detected (NotDetected); Phencyclidine (PCP) Not Detected (NotDetected); THC/Cannabinoid Screen Not Detected (NotDetected); Tricyclic Screen Not Detected (NotDetected)
[2021-01-28 01:10] LABS: Acetaminophen Less than 6.0 mcg/mL (10.0-30.0); Alcohol Less than 10 mg/dL (Less than 10); CK (CPK) 514 U/L (30-200); Salicylate Less than 8.0 mg/dL (15.0-30.0)
[2021-01-28 01:11] LABS: ALT (SGPT) 19 U/L (8-55); AST (SGOT) 22 U/L (5-34); Alkaline Phosphatase 77 U/L (40-110); Anion Gap 17 mmol/L (10-20); BUN (Urea Nitrogen) 14 mg/dL (8.9-20.6); Bilirubin, Total 0.4 mg/dL (0.2-1.2); Calc. Creatinine Clearance 0 mL/min (70-130); Calcium 8.9 mg/dL (7.8-10.44); Carbon Dioxide 19 mmol/L (22-29); Chloride 110 mmol/L (98-107); Glucose 104 mg/dL (70-105); Potassium 3.8 mmol/L (3.5-5.1); Sodium 142 mmol/L (136-145)
== END 2021-01-28 01:13 | disposition home or self-care (01) ==
LOC: ERS 22:37
DX: F15.10 Other stimulant abuse, uncomplicated (principal); R00.0 Tachycardia, unspecified; F17.210 Nicotine dependence, cigarettes, uncomplicated
CPT/HCPCS: 80053; 80306; 80307; 82550; 85025; 93005; 96374; J2060

== ENCOUNTER 2021-02-03 16:03 | Emergency (ER) | payer SELFPAY ==
[2021-02-03] MEDS ORDERED: Acetaminophen 500 MG TAB ONE (16:49)
== END 2021-02-03 16:54 | disposition home or self-care (01) ==
LOC: ERS 16:03
DX: L03.012 Cellulitis of left finger (principal); F17.210 Nicotine dependence, cigarettes, uncomplicated; Z79.899 Other long term (current) drug therapy
CPT/HCPCS: 10060